=== PATIENT | male | born 1945 | race Caucasian/White ===

== ENCOUNTER → 2018-05-02 | Outpatient (CLI) | payer MEDICARE, BC | LOC: PT 14:30 → EDSTATUS 14:30 | DX: M17.12 Unilateral primary osteoarthritis, left knee (principal) ==

== ENCOUNTER 2018-07-12 13:00 | Outpatient (RCR) | payer MEDICARE | END 2018-07-12 13:30 | disposition home or self-care (01) | LOC: PT 13:00 | DX: M17.12 Unilateral primary osteoarthritis, left knee (principal) ==

== ENCOUNTER 2019-08-23 09:00 | Outpatient (RCR) | payer MEDICARE, BC | END 2019-09-26 | disposition still patient (30) | LOC: PT | DX: M54.5 Low back pain (principal) ==

== ENCOUNTER 2020-07-30 13:55 | Outpatient (RCR) | payer MEDICARE, BC | END 2020-10-28 | LOC: PT | DX: Z98.1 Arthrodesis status (principal) ==

== ENCOUNTER 2021-04-16 10:49 | Outpatient (RCR) | payer MEDICARE, BC | END 2021-04-21 | disposition home or self-care (01) | LOC: PT | DX: M17.11 Unilateral primary osteoarthritis, right knee (principal) ==

== ENCOUNTER 2021-04-23 09:22 | Outpatient (RCR) | payer MEDICARE, BC ==
[2021-05-14] MEDS ORDERED: ROXICODONE 55 MG/TAB PO (18:47)
[2021-05-14] MEDS ORDERED: ALLOPURINOL300 M1 PO (18:51)
[2021-05-14] MEDS ORDERED: NORVASC 5MG5 MG/TAB PO (18:56)
[2021-05-14] MEDS ORDERED: LOW DOSE ASPIRI81 M1 PO (18:57)
[2021-05-14] MEDS ORDERED: NEURONTIN300 M1 PO (18:59)
[2021-05-14] MEDS ORDERED: PROBENECID AND1 TAB PO (19:00)
[2021-05-14] MEDS ORDERED: RELAFEN500 M1 PO (19:01)
[2021-05-14] MEDS ORDERED: VALSARTAN AND H1 TA3 PO (19:04)
[2021-05-14] MEDS ORDERED: SILDENAFIL CIT100 MG PO (19:04)
== END 2021-05-22 | disposition home or self-care (01) ==
LOC: PT
DX: M17.11 Unilateral primary osteoarthritis, right knee (principal)

== ENCOUNTER → 2021-05-19 | Outpatient (CLI) | payer MEDICARE, BC ==
[2021-05-17 11:17] VITALS: BP 119/832
[~2021-05-19] VITALS: Ht 167.6 cm; Wt 130.0 kg
[~2021-05-19] MED LIST: ALLOPURINOL300 M1 PO; LOW DOSE ASPIRI81 M1 PO; NEURONTIN300 M1 PO; NORVASC 5MG5 MG/TAB PO; PROBENECID AND1 TAB PO; RELAFEN500 M1 PO; ROXICODONE 55 MG/TAB PO; SILDENAFIL CIT100 MG PO; VALSARTAN AND H1 TA3 PO
[2021-05-19 11:07] LABS: HEMOGLOBIN 13.4 g/dL (13.5-18.0); MEAN PLATELET VOLUME 9.5 fl (7.4-10.4); RED BLOOD COUNT 4.46 M/mm3 (4.20-5.60); RED CELL DISTRIBUTION WIDTH 13.1 % (11.5-14.5); WHITE BLOOD COUNT 7.7 K/mm3 (4.8-10.8)
[2021-05-19 11:13] LABS: ALBUMIN 3.7 g/dL (3.4-4.8); POTASSIUM 3.7 mmol/L (3.5-5.1)
[2021-05-19 11:14] LABS: CALCIUM 9.1 mg/dL (8.3-10.5)
[2021-05-19 11:16] LABS: TOTAL PROTEIN 6.9 g/dL (6.2-8.1)
[2021-05-19 11:18] LABS: TOTAL BILIRUBIN 0.3 mg/dL (0.2-1.2)
== END | disposition still patient (30) ==
LOC: LAB 02:02
PROVIDERS: Internal Medicine Infectious Disease
DX: L02.415 Cutaneous abscess of right lower limb (principal)

== ENCOUNTER 2021-05-21 09:53 | Outpatient (RCR) | payer MEDICARE, BC | END 2021-05-22 | LOC: PT | DX: M17.11 Unilateral primary osteoarthritis, right knee (principal) ==

== ENCOUNTER → 2021-05-22 | Outpatient (RCR) | payer MEDICARE, BC ==
[2021-05-14 12:10] VITALS: BP 142/80
[2021-05-15 11:08] VITALS: BP 129/82
[2021-05-16 09:00] VITALS: BP 139/81
[2021-05-17 11:22] VITALS: BP 118/93
[2021-05-18 11:13] VITALS: BP 111/84
[2021-05-19 10:40] VITALS: BP 132/93
[2021-05-20 11:07] VITALS: BP 118/69
[2021-05-21 11:04] VITALS: BP 110/78
[2021-05-21 11:34] VITALS: BP 115/69
[~2021-05-22] VITALS: Ht 167.6 cm; Wt 130.0 kg
[2021-05-22 10:54] VITALS: BP 134/79
[2021-05-23 11:21] VITALS: BP 112/76
== END | disposition home or self-care (01) ==
LOC: AMSURD
DX: L02.415 Cutaneous abscess of right lower limb (principal)
CPT/HCPCS: J1335

== ENCOUNTER 2021-05-23 11:33 | Outpatient (RCR) | payer MEDICARE, BC | END 2021-06-21 | disposition home or self-care (01) | LOC: PT | DX: M17.11 Unilateral primary osteoarthritis, right knee (principal) ==

== ENCOUNTER → 2021-05-26 | Outpatient (CLI) | payer MEDICARE, BC ==
[2021-05-26 11:28] LABS: HEMATOCRIT 40.4 % (42.0-52.0); HEMOGLOBIN 13.7 g/dL (13.5-18.0); MEAN PLATELET VOLUME 9.8 fl (7.4-10.4); RED BLOOD COUNT 4.6 M/mm3 (4.20-5.60); RED CELL DISTRIBUTION WIDTH 13.1 % (11.5-14.5); WHITE BLOOD COUNT 6.3 K/mm3 (4.8-10.8)
[2021-05-26 11:30] LABS: ALBUMIN 3.9 g/dL (3.4-4.8); POTASSIUM 3.9 mmol/L (3.5-5.1)
[2021-05-26 11:31] LABS: CALCIUM 9.4 mg/dL (8.3-10.5)
[2021-05-26 11:33] LABS: TOTAL PROTEIN 7.1 g/dL (6.2-8.1)
[2021-05-26 11:34] LABS: TOTAL BILIRUBIN 0.4 mg/dL (0.2-1.2)
== END ==
LOC: LAB 10:37
PROVIDERS: Physician Assistant
DX: L02.415 Cutaneous abscess of right lower limb (principal)

== ENCOUNTER → 2021-05-30 | Outpatient (CLI) | payer MEDICARE, BC | LOC: LAB 09:47 | DX: R19.7 Diarrhea, unspecified (principal) ==

== ENCOUNTER 2021-06-01 08:46 | Outpatient (RCR) | payer MEDICARE, BC ==
[2021-05-23 10:50] VITALS: BP 107/76
[2021-05-24 10:53] VITALS: BP 121/75
[2021-05-25 10:56] VITALS: BP 118/75
[2021-05-26 11:00] VITALS: BP 116/79
[2021-05-27 11:06] VITALS: BP 146/76
[2021-05-28 09:00] VITALS: BP 120/76
[2021-05-29 09:18] VITALS: BP 108/67
[2021-05-30 09:00] VITALS: BP 139/81
[2021-05-31 08:56] VITALS: BP 109/78
[~2021-06-01] VITALS: Ht 167.6 cm; Wt 130.0 kg
[2021-06-01 09:16] VITALS: BP 115/83
[2021-06-04 09:27] VITALS: BP 1285/86
== END 2021-06-04 12:00 | disposition home or self-care (01) ==
LOC: AMSURD 08:46
DX: L02.415 Cutaneous abscess of right lower limb (principal)
CPT/HCPCS: J1335

== ENCOUNTER 2021-06-25 08:38 | Outpatient (RCR) | payer MEDICARE, BC | END 2021-07-11 17:00 | disposition still patient (30) | LOC: PT 08:38 | DX: M17.11 Unilateral primary osteoarthritis, right knee (principal) ==

== ENCOUNTER 2021-07-25 08:51 | Outpatient (RCR) | payer MEDICARE, BC | END 2021-08-21 | disposition home or self-care (01) | LOC: PT | DX: M54.50 Low back pain, unspecified (principal); M79.651 Pain in right thigh; M79.652 Pain in left thigh; Z96.651 Presence of right artificial knee joint ==

== ENCOUNTER 2022-02-24 08:00 | Outpatient (RCR) | payer MEDICARE, BC | END 2022-03-24 | disposition home or self-care (01) | LOC: PT | DX: M54.50 Low back pain, unspecified (principal); M79.604 Pain in right leg ==